=== PATIENT | male | born 1960 | race Caucasian/White ===

== ENCOUNTER 2018-06-12 07:12 | Emergency (ER) | payer BC, SELFPAY ==
[2018-06-12 07:16] VITALS: BP 162/80; PULSE 102; RESP 26; TEMP 36.4; O2SAT 95
[2018-06-12 07:34] VITALS: RESP 2; RESP 24; O2SAT 95
[2018-06-12] MEDS: Albuterol/Ipratropium 3 ML UPD VIAL UPD (07:34)
[2018-06-12 08:15] LABS: Abs Immature Grans 0.02 k/cumm (0.0-0.09); HCT 41.8 % (40.0-50.0); HGB 14.5 g/dL (13.5-17.5); Mean Corp. HGB Concentration 34.7 g/dL (32.0-36.0); Mean Corpuscular Hemoglobin 31.9 pg (27.0-33.0); Mean Corpuscular Volume 92.1 fL (80-95); Mean Platelet Volume 12.3 fL (8.0-11.0); RBC 4.54 m/cumm (4.50-6.00); RBC Distribution Width 12.8 % (11.8-14.1)
[2018-06-12 08:29] LABS: ALT 68 U/L (12-78); AST 109 U/L (15-37); Albumin 2.9 g/dL (3.4-5.0); Alkaline Phosphatase 175 U/L (46-116); Anion Gap 12.7 mmol/L (3-11); BUN 9 mg/dL (7-18); Bilirubin, Total 1.1 mg/dL (0.2-1.0); CO2 28.3 mmol/L (21.0-32.0); CREATININE 0.57 mg/dL (0.70-1.30); Calcium 8.4 mg/dL (8.5-10.1); Chloride 97 mmol/L (98-107); Glucose 129 mg/dL (70-100); Magnesium 1.1 mg/dL (1.8-2.4); NT-proBNP 143 pg/mL; Potassium 3.3 mmol/L (3.5-5.1); Sodium 138 mmol/L (136-145); Total Protein 7.8 g/dL (6.4-8.2)
[2018-06-12 08:33] LABS: Troponin I < 0.02 ng/mL (0.00-0.06)
[2018-06-12 08:38] LABS: Absolute Lymphocyte Count 3.25 k/cumm (1.2-3.4); Platelet Count 61 x1000/uL (130-400)
[2018-06-12 08:39] LABS: Absolute Eosinophil Count 0.06 k/cumm (0.0-0.7); Absolute Monocyte Count 0.66 k/cumm (0.11-0.7); Atypical Lymphocytes % 6; Diff Comment Manual Differential; Polychromasia Present
[2018-06-12 08:41] VITALS: RESP 24
[2018-06-12 08:54] VITALS: RESP 4
[2018-06-12] MEDS: Albuterol 2.5 MG/3 ML INH SOLN VIAL UPD ×2 (08:54→10:50)
[2018-06-12] MEDS: methylPREDNISolone SUCC 40 MG VIAL IVP (08:57)
[2018-06-12] MEDS: MAGNESIUM SULFATE 2 GM/50 ML BAG IVPB (09:31)
[2018-06-12] MEDS: Lactated Ringers 1,000 ML 1000 ML IV (09:31)
[2018-06-12 10:50] VITALS: PULSE 90; RESP 16; RESP 4; O2SAT 95
--- NOTE | 2018-06-12 10:56 | ED.GENADUL_ITS ---
Discharge Plan Disposition Patient Disposition: HOME Condition: Improving Discharge Details Chief Complaint: SOB Clinical Impression: Bronchitis Primary Care Provider: Srinivas Pink ED Provider: Dharmesh Blanco Home Meds and New Rx's Prescriptions: New prednisone [Deltasone] 20 MG tablet 40 mg PO DAILY 5 Days Qty: 10 RF: 0 albuterol sulfate 90 mcg/actuation HFA aerosol inhaler 2 - 4 puff IH Q4H PRN (Reason: shortness of breath or wheezing) Qty: 8 RF: 0 No Action lisinopril-hydrochlorothiazide 20-25 mg tablet 1 tab PO DAILY Qty: 90 RF: 4 Enbrel SureClick 50 MG/1 ML pen injector 50 mg SQ 1xwk RF: 0 Daily Multiple 1 EACH tablet 1 tab-cap PO DAILY RF: 0 metformin 500 MG tablet 500 mg PO BID Qty: 180 RF: 4 ipratropium bromide 15 ML spray,non-aerosol 2 spry NS TID PRNQty: 1 RF: 3 omeprazole 20 MG capsule,delayed release(DR/EC) 20 mg PO DAILY Qty: 90 RF: 4 Flovent HFA 44 mcg/actuation HFA aerosol inhaler 2 inh Inhalation BID Qty: 1 RF: 3 ibuprofen 800 mg tablet 800 mg PO TID PRN (Reason: pain) Qty: 90 RF: 3 Discharge Instructions Instructions: Acute Bronchitis (ED) Additional Instructions: 1. Drink plenty of fluids. 2. Continue all medications as prescribed. 3. Acetaminophen 1000mg every 4 hours (up to 5 time a day) and/or ibuprofen 600mg every 6 hours as needed for fever or pain. 4. Albuterol 2-4 puffs every 4 hours as needed for difficulty breathing/wheezing. 5. Prednisone 40 mg once a day for 4 days. 6. Zantac 300 mg at bedtime. Return to the Emergency Department (ED) if your condition worsens, does not improve as expected, or for ANY other concernsAlbuterol 2-4 puffs every 4 hours. Medical Decision Making 68-year-old gent with a history of alcohol abuse, asthma, hypertension, GERD, and tobacco use. Presents with 2 weeks of progressive dyspnea refractory to outpatient management. Has had a chronic recurrent cough productive of yellowish sputum and notes increased exertional limitation. On arrival, anxious but otherwise in no significant distress. Exam significant for diffuse expiratory wheezing with no focal deficit appreciated. EKG negative. Bedside ultrasound negative for evidence of focal consolidation or interstitial syndrome. Gradual clinical improvement after receiving multiple albuterol nebulizers and Solu-Medrol. Labs nondiagnostic including a negative troponin. Multiple re-evaluations with gradual improving symptoms. Discussed likely diagnosis of asthma exacerbation/bronchitis. Discharged home with a prescription for albuterol and prednisone. He will follow-up with his PCP. Pt evaluated immediately prior to discharge with improved symptoms, normal vital signs, and tolerating PO. The patient feels appropriate for discharge home. Discussed clinical/diagnostic findings. Discharged with a clear plan for outpatient follow up. Given usual and customary return instructions prior to discharge. Medical Records Medical records reviewed: Yes I reviewed the patient's medical records. Imaging Data Radiologic Study: Attestation: I personally reviewed and interpreted this imaging study as follows: Imaging: Ultrasound (Bedside thoracic ultrasound) My impression: Limited thoracic bedside Ultrasound. Findings include No pleural effusion, focal consolidation, or interstitial syndrome.. Images obtained, reviewed, and interpreted independently by myself. Images saved on ultrasound system for review. Lab Data Lab results reviewed: Yes I reviewed the patient's lab results. Lab results narrative: Lab Results 06/12/18 06/12/18 Range/Units 07:45 07:45 WBC 5.50 (4.4-10.8) k/cumm RBC 4.54 (4.50-6.00) m/cumm Hgb 14.5 (13.5-17.5) g/dL Hct 41.8 (40.0-50.0) % MCV 92.1 (80-95) fL MCH 31.9 (27.0-33.0) pg MCHC 34.7 (32.0-36.0) g/dL RDW 12.8 (11.8-14.1) % Plt Count 61 L (130-400) x1000/uL MPV 12.3 H (8.0-11.0) fL Immature Gran % 0.0 Neutrophils % 26.0 Band Neutrophils % 3.0 % Lymphocytes % 53.0 Atypical Lymphs % 6 Monocytes % 12.0 Eosinophils % 1.0 Basophils % 0.0 Absolute Neutrophils 1.60 (1.2-6.7) k/cumm Absolute Lymphocytes 3.25 (1.2-3.4) k/cumm Absolute Monocytes 0.66 (0.11-0.7) k/cumm Absolute Eosinophils 0.06 (0.0-0.7) k/cumm Absolute Basophils 0.00 (0.0-0.2) k/cumm Differential Comment Manual differential RBC Morphology See below Polychromasia Present Sodium 138 (136-145) mmol/L Potassium 3.3 L (3.5-5.1) mmol/L Chloride 97 L (98-107) mmol/L Carbon Dioxide 28.3 (21.0-32.0) mmol/L Anion Gap 12.7 H (3-11) mmol/L BUN 9 (7-18) mg/dL Creatinine 0.57 L (0.70-1.30) mg/dL Estimated GFR/1.73 m2 >= 60.00 (mL/min/1.73m2) Glucose 129 H (70-100) mg/dL Calcium 8.4 L (8.5-10.1) mg/dL Magnesium 1.1 L (1.8-2.4) mg/dL Total Bilirubin 1.1 H (0.2-1.0) mg/dL AST 109 H (15-37) U/L ALT 68 (12-78) U/L Alkaline Phosphatase 175 H (46-116) U/L Troponin I < 0.02 (0.00-0.06) ng/mL NT-Pro-B Natriuret Pep 143 ( - 299) pg/mL Total Protein 7.8 (6.4-8.2) g/dL Albumin 2.9 L (3.4-5.0) g/dL ECG Data Attestation: I personally reviewed and interpreted this ECG (s) as follows: Prior ECG tracings: not available for review Interpretation: NSR 95 bpm normal axis and intervals no acute ST changes. HPI 58-year-old gent with a history of asthma, depression, GERD, chronic tobacco use, alcohol use, and diabetes presents with 2 weeks of worsening dyspnea. He describes having intermittent issues with dyspnea and notes developing worsening dyspnea 2 weeks ago which has been progressive with associated productive cough. He has had significant exertional limitation and today was unable to walk without significant dyspnea. He denies fever/chills, chest pain, abdominal pain, or any significant lower extremity pain or swelling. Denies a history of CAD/congestive heart failure. He has been compliant with his medications including ipratropium twice a day. General Date/Time Provider Initiated Documentation: 06/12/18 07:32 . Related Data Home Medications Medication Instructions Recorded Confirmed Enbrel SureClick 50 mg SQ 1xwk 09/23/14 06/12/18 [id number] acid 1 tab-cap PO DAILY tab-cap 06/25/16 06/12/18 [Daily Multiple Tablet] ipratropium bromide 2 spry NS TID PRN #1 inh 06/23/17 06/12/18 metformin 500 mg PO BID #180 tab-cap 06/23/17 06/12/18 omeprazole 20 mg PO DAILY #90 tab-cap 06/23/17 06/12/18 fluticasone propionate 44 2 inh INHALATION BID #1 gm 01/15/18 06/12/18 mcg/actuation HFA aerosol inhaler lisinopril 20 1 tab PO DAILY #90 tab-cap 05/08/18 06/12/18 mg-hydrochlorothiazide 25 mg tablet ibuprofen 800 mg tablet 800 mg PO TID PRN #90 tab-cap 06/08/18 06/12/18 albuterol sulfate 2 - 4 puff IH Q4H PRN #8 gm 06/12/18 prednisone [Deltasone] 40 mg PO DAILY 5 Days #10 tab 06/12/18 Previous Rx's Medication Instructions Recorded metformin 500 mg PO BID #180 tab-cap 06/23/17 omeprazole 20 mg PO DAILY #90 tab-cap 06/23/17 fluticasone propionate 44 2 inh INHALATION BID #1 gm 01/15/18 mcg/actuation HFA aerosol inhaler lisinopril 20 1 tab PO DAILY #90 tab-cap 05/08/18 mg-hydrochlorothiazide 25 mg tablet ibuprofen 800 mg tablet 800 mg PO TID PRN #90 tab-cap 06/08/18 albuterol sulfate 2 - 4 puff IH Q4H PRN #8 gm 06/12/18 prednisone [Deltasone] 40 mg PO DAILY 5 Days #10 tab 06/12/18 Allergies Allergy/AdvReac Type Severity Reaction Status Date / Time No Known Allergies Allergy Unverified 04/10/18 10:57 General Stated Complaint: SOB AMI: 3 Review of Systems Review of Systems All systems are reviewed and are unremarkable except as noted in HPI and below: CONSTITUTIONAL: no fevers/chills, no weakness or change in appetite EYES: no change in vision HEENT: no throat pain or difficulty swallowing; no neck pain CARDIOVASCULAR: no chest pain, palpitations, leg swelling, or diaphoresis RESPIRATORY: dyspnea, wheezing; cough productive of yellowish sputum. GASTROINTESTINAL: no abdominal pain, melena, nausea/emesis GENITOURINARY: no dysuria, flank pain, MUSCULOSKELETAL: no pack pain, myalgias, arthralgias INTEGUMENTARY: no rash, no wounds NEUROLOGIC: no headache, focal weakness, difficulty with speech, numbness PSYCHIATRIC: no confusion, no anxiety HEME: no easy bruising or bleeding ALLERGIC: no urticaria PFSH Medical History Abnormal finding of blood chemistry, unspecified (Chronic) Alcohol abuse (Chronic) Asthma (Chronic) Depressive disorder (Chronic) Essential hypertension (Chronic 01/11/13) Gastroesophageal reflux disease (Chronic) Hepatomegaly (Chronic) History of tobacco use (Chronic) Hyperlipidemia (Chronic) Hypothyroidism (Chronic 04/30/12) Non-alcoholic fatty liver disease (Chronic) Psoriasis (Chronic) Rhinitis (Chronic) Tubular adenoma (Chronic) Type 2 diabetes mellitus without complication, without long-term current use of insulin (Chronic 05/31/16) Umbilical hernia (Chronic) Dislocation of acromioclavicular joint (Resolved) Viral hepatitis C (Resolved 01/30/07) HTN (hypertension) Psoriasis Sinus congestion Surgical History Colonoscopy - MAC (10/31/14) Tonsillectomy and adenoidectomy Family History Father Essential hypertension Aneurysm Myocardial infarction Neoplasm Stroke Social History Smoking/Tobacco Use Status: Current every day Tobacco Type: cigarettes Drug use: Never Do you feel safe at home: Yes Do you feel safe in your relationship?: Yes Exam Narrative Exam Narrative: Nursing note and vital signs have been reviewed and noted. GENERAL: alert, active, no acute distress, well -hydrated, well-nourished; mild tachypnea. HEENT: atraumatic/normocephalic, PERRLA, EOMI, conjunctiva clear, external ears/canals normal, nasal mucosa normal NECK: supple, full range of motion, no mass, normal lymphadenopathy, no thyromegaly CARDIOVASCULAR: RRR, no murmurs, nl pulses, no edema PULMONARY: Mild tachypnea with occasional deep inspiration, diffuse expiratory wheezing with a prolonged expiratory phase. No stridor, nl breath sounds or focal deficit. no chest wall tenderness ABDOMEN: soft, non-tender, non-distended, no mass, no organomegaly EXTREMITY: normal muscle tone, all joints with FROM, no deformity or tenderness SKIN: no exanthem appreciated NEURO: gross motor exam normal, normal stance and gait PSYCH: alert and oriented, Course Vital Signs Temperature 97.5 F L 06/12/18 07:16 Pulse 102 H 06/12/18 07:16 Respiratory Rate 26 H 06/12/18 07:16 Blood Pressure 162/80 H 06/12/18 07:16 Pulse Oximetry 95 06/12/18 07:16 Temperature 97.5 F L 06/12/18 07:16 Temperature Source Skin 06/12/18 07:16 Pulse 102 H 06/12/18 07:16 Respiratory Rate 24 06/12/18 08:41 Respiratory Effort Labored 06/12/18 09:06 Respiratory Pattern Tachypnea 06/12/18 08:41 Blood Pressure 162/80 H 06/12/18 07:16 Blood Pressure Position Sitting 06/12/18 07:16 Pulse Oximetry 95 06/12/18 07:34 Oxygen Delivery Method Room Air 06/12/18 07:34 Oxygen Flow Rate 0 06/12/18 07:34 Lab/Test Results Lab/Test Results: Laboratory Tests Range/Units 06/12/18 06/12/18 07:45 07:45 WBC (4.4-10.8) k/cumm 5.50 RBC (4.50-6.00) m/cumm 4.54 Hgb (13.5-17.5) g/dL 14.5 Hct (40.0-50.0) % 41.8 MCV (80-95) fL 92.1 MCH (27.0-33.0) pg 31.9 MCHC (32.0-36.0) g/dL 34.7 RDW (11.8-14.1) % 12.8 Plt Count (130-400) x1000/uL 61 L MPV (8.0-11.0) fL 12.3 H Immature Gran % 0.0 Neutrophils % 26.0 Band Neutrophils % % 3.0 Lymphocytes % 53.0 Atypical Lymphs % 6 Monocytes % 12.0 Eosinophils % 1.0 Basophils % 0.0 Absolute Neutrophils (1.2-6.7) k/cumm 1.60 Absolute Lymphocytes (1.2-3.4) k/cumm 3.25 Absolute Monocytes (0.11-0.7) k/cumm 0.66 Absolute Eosinophils (0.0-0.7) k/cumm 0.06 Absolute Basophils (0.0-0.2) k/cumm 0.00 Differential Comment Manual differential RBC Morphology See below Polychromasia Present Sodium (136-145) mmol/L 138 Potassium (3.5-5.1) mmol/L 3.3 L Chloride (98-107) mmol/L 97 L Carbon Dioxide (21.0-32.0) mmol/L 28.3 Anion Gap (3-11) mmol/L 12.7 H BUN (7-18) mg/dL 9 Creatinine (0.70-1.30) mg/dL 0.57 L Estimated GFR/1.73 m2 (mL/min/1.73m2) >= 60.00 Glucose (70-100) mg/dL 129 H Calcium (8.5-10.1) mg/dL 8.4 L Magnesium (1.8-2.4) mg/dL 1.1 L Total Bilirubin (0.2-1.0) mg/dL 1.1 H AST (15-37) U/L 109 H ALT (12-78) U/L 68 Alkaline Phosphatase (46-116) U/L 175 H Troponin I (0.00-0.06) ng/mL < 0.02 NT-Pro-B Natriuret Pep ( - 299) pg/mL 143 Total Protein (6.4-8.2) g/dL 7.8 Albumin (3.4-5.0) g/dL 2.9 L
== END 2018-06-12 11:25 | disposition home or self-care (01) ==
PROVIDERS: Emergency Medicine; Emergency Provider Emergency Medicine; PCP Family Medicine
DX: J20.9 Acute bronchitis, unspecified (principal); I10 Essential (primary) hypertension; J45.909 Unspecified asthma, uncomplicated; F17.210 Nicotine dependence, cigarettes, uncomplicated
CPT/HCPCS: 36415; 80053; 93005; 94640; 96361; 96365; 96366; 96375; 99285; 83735; 83880; 84484; 85025; 93010; J7613; J7620

== ENCOUNTER 2019-03-12 11:07 | Outpatient (CLI) | payer BC, SELFPAY ==
--- NOTE | 2019-03-12 11:21 | DI.RAD_ITS ---
EXAM: XR CHEST 2V PA LATERAL XR CHEST 2V PA LATERAL CLINICAL HISTORY: Dyspnea with orthopnea R06.00 Dyspnea with orthopnea R06.00 TECHNIQUE: 2D digital imaging was performed. COMPARISON: No exams were available for comparison FINDINGS: The heart is not enlarged. The lungs are clear and well expanded. No pleural effusion seen. Mediastin al contours appear intact. IMPRESSION: Normal chest
[2019-03-12 12:03] LABS: HCT 39.5 % (40.0-50.0); HGB 13.2 g/dL (13.5-17.5); Mean Corp. HGB Concentration 33.4 g/dL (32.0-36.0); Mean Corpuscular Hemoglobin 32.9 pg (27.0-33.0); Mean Corpuscular Volume 98.5 fL (80-95); RBC 4.01 m/cumm (4.50-6.00); RBC Distribution Width 17.9 % (11.8-14.1); White Blood Cell Count 10.67 k/cumm (4.4-10.8)
[2019-03-12 12:21] LABS: ALT 38 U/L (16-63); AST 136 U/L (15-37); Albumin 2.3 g/dL (3.4-5.0); Alkaline Phosphatase 219 U/L (46-116); Anion Gap 10.4 mmol/L (3-11); BUN 35 mg/dL (7-18); Bilirubin, Total 5.1 mg/dL (0.2-1.0); CO2 22.6 mmol/L (21.0-32.0); CREATININE 1.31 mg/dL (0.70-1.30); Calcium 8.8 mg/dL (8.5-10.1); Chloride 103 mmol/L (98-107); Estimated GFR 55.81 (mL/min/1.73m2); Glucose 131 mg/dL (74-106); Potassium 4.9 mmol/L (3.5-5.1); Sodium 136 mmol/L (136-145); Total Protein 8.3 g/dL (6.4-8.2)
[2019-03-12 12:43] LABS: Platelet Count 12 x1000/uL (130-400)
== END 2019-03-12 11:27 ==
PROVIDERS: PCP Family Medicine; Visit Provider Family Medicine
DX: R06.00 Dyspnea, unspecified (principal)
CPT/HCPCS: 36415; 80053; 85027; 71046

== ENCOUNTER 2019-03-12 13:07 | Emergency (ER) | payer BC, SELFPAY ==
[2019-03-12] VITALS (35 sets, daily range): BP systolic 53–130; BP diastolic 38–89; PULSE 85–125; RESP 14–26; TEMP 36.6–36.7; O2SAT 81–98
--- NOTE | 2019-03-12 13:26 | W.ED.GENAD ---
Discharge Plan Disposition Patient Disposition: [facility] Condition: Critical Discharge Details Chief Complaint: SOB Clinical Impression: Cirrhosis, Thrombocytopenia, Hypotension, Multifocal pneumonia Primary Care Provider: Srinivas Pink ED Provider: Donavan Keller Home Meds and New Rx's Prescriptions: No Action lisinopril-hydrochlorothiazide 20-25 mg tablet 1 tab PO DAILY Qty: 90 RF: 4 potassium chloride 10 mEq capsule, extended release 10 meq PO DAILY Qty: 90 RF: 4 venlafaxine 75 mg capsule,extended release 24hr 75 mg PO DAILY Qty: 30 RF: 3 Enbrel SureClick 50 MG/1 ML pen injector 50 mg SQ 1xwk RF: 0 ibuprofen 800 mg tablet 800 mg PO TID PRN (Reason: pain) Qty: 90 RF: 3 metformin 500 mg tablet 500 mg PO BID Qty: 180 RF: 4 omeprazole 20 mg capsule,delayed release(DR/EC) 20 mg PO DAILY Qty: 90 RF: 4 Flovent HFA 44 mcg/actuation HFA aerosol inhaler 2 inh Inhalation BID Qty: 1 RF: 3 albuterol sulfate 90 mcg/actuation HFA aerosol inhaler 2 - 4 puff IH Q4H MDD 12 puffs PRN (Reason: shortness of breath or wheezing) Qty: 8 RF: 4 magnesium oxide 400 mg magnesium Capsule 400 mg PO DAILY RF: 0 Medical Decision Making 59 yo male with hx of former alcohol abuse, quit over the summer per patient, gerd, asthma, htn, depression, t2dm, who comes in with several months of increasing abdominal distention and shortness of breath. Denies chest pain or pressure or fevers, denies taking tylenol or other drug use. Saw his pcp today who ordered lab work and it showed plts of 12 and elevated bilirubin and lfts and was referred here, also had an xray done of his chest that was unremarkable. He has a distended abdomen without tenderness that I suspect is from ascites. I suspect his symptoms are due to likely cirrhosis from the alcohol use he has had and the thrombocytopenia is related to this given he appears well on exam in no distress. Will obtain ct to evaluate for this. Doubt ttp as he has no renal pathology on labs from earlier and no sign wirer abnormalities or fever. Doubt hus given no renal failure. Doubt sbp given lack of abdominal pain or fevers. pt's ct per Dr. Peguero shows bilateral multifactorial pna and also ?mass in ivc and requesting u/s to further evaluate. Also has mass on the liver. I ordered blood cultures and coverage for CAP after performing diagnostic paracentesis, he gave verbal consent after risks of bleeding and infection were discussed and understood risks and benefits. inconclusive study per Dr. Peguero on u/s. Pt remains stable at this time. Given his multiple pathologies, the cirrhosis, thrombocytopenia and ivc thrombus with pneumonia will see if [facility] [place] [facility] [place], will [facility], will discuss with oncology at [facility] about anticoagulation. Pt remains stable at this time Spoke with Dr. Vela at [facility] [place] and he recommended transfusing platelets until they are greater than 20K and then starting lovenox 0.5mg BID. Spoke with Dr. Hayward who doesn't feel patient is appropriate for admission here. Will consult with [facility] Patient became persistently hypotensive with map's in the 50's not responsive to fluid. Given this I started pressors and hisMAPs increased to the 70's on the pressors. HE is maintaining his airway. Will speak with [facility] icu about transfer Spoke with ICU and they accept in transfer, will go to the ICU they asked that vitamin K be given. HE remains with map of 70 on pressors. The platelets take 4+ hours to come from [place] so will need to be given when he arrives at [facility]. ACcepting provider is Dr. Briseno Differential Diagnosis Differential Diagnosis: cirrhosis, ascites Medical Records Medical records reviewed: Yes I reviewed the patient's medical records. Imaging Data Radiologic Study: Attestation: I personally reviewed and interpreted this imaging study as follows: Imaging: CT Scan Radiologist's impression: MPRESSION: 1. Hepatic cirrhosis and abdominal ascites with associated esophageal varices and upper abdominal varices. 2. Findings suggesting left hepatic lobe neoplasm, possibility of tumor thrombus to hepatic veins, IVC and right atrium is raised. Correlation with echocardiography and abdominal ultrasound recommended. 3. Bilateral nonobstructing renal calculi. 4. Nonspecific thick wall appearance of small bowel and to lesser degree the colon. 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 Echocardiography suggested for further evaluation to evaluate the possibility of right atrial thrombus. Lab Data Lab results reviewed: Yes I reviewed the patient's lab results. ECG Data Attestation: I personally reviewed and interpreted this ECG (s) as follows: Prior ECG tracings: not available for review Interpretation: sinus tachycardia rate of 117, pr 140, no acute st t wave ischemic findings HPI General Mode of arrival: ambulatory. Date/Time Provider Initiated Documentation: 03/12/19 13:13. Limitations to Documentation: no limitations. Information obtained by: patient. History of Present Illness 59 year old M presents to the emergency department with the chief complaint of abdominal distention, described as moderate, Patient started experiencing this month(s) (3) and it has been constant. No relieving factors improve symptom(s), No exacerbating factors reported . Patient did receive the following treatments prior to arrival, none Related Data Home Medications Medication Instructions Recorded Confirmed Enbrel SureClick 50 mg SQ 1xwk 09/23/14 03/12/19 lisinopril 20 1 tab PO DAILY #90 tab-cap 05/08/18 03/12/19 mg-hydrochlorothiazide 25 mg tablet ibuprofen 800 mg tablet 800 mg PO TID PRN #90 tab-cap 06/08/18 03/12/19 metformin 500 mg tablet 500 mg PO BID #180 tab-cap 07/06/18 03/12/19 omeprazole 20 mg capsule,delayed 20 mg PO DAILY #90 tab-cap 07/06/18 03/12/19 release fluticasone propionate 44 2 inh INHALATION BID #1 gm 08/03/18 03/12/19 mcg/actuation HFA aerosol inhaler potassium chloride 10 mEq 10 meq PO DAILY #90 cap 09/11/18 03/12/19 capsule,extended release albuterol sulfate 90 mcg/actuation 2 - 4 puff IH Q4H PRN #8 gm MDD 12 09/14/18 03/12/19 aerosol inhaler puffs magnesium oxide 400 mg PO DAILY 03/12/19 03/12/19 venlafaxine 75 mg capsule,extended 75 mg PO DAILY #30 cap 03/12/19 03/12/19 release 24 hr Previous Rx's Medication Instructions Recorded lisinopril 20 1 tab PO DAILY #90 tab-cap 05/08/18 mg-hydrochlorothiazide 25 mg tablet ibuprofen 800 mg tablet 800 mg PO TID PRN #90 tab-cap 06/08/18 metformin 500 mg tablet 500 mg PO BID #180 tab-cap 07/06/18 omeprazole 20 mg capsule,delayed 20 mg PO DAILY #90 tab-cap 07/06/18 release fluticasone propionate 44 2 inh INHALATION BID #1 gm 08/03/18 mcg/actuation HFA aerosol inhaler potassium chloride 10 mEq 10 meq PO DAILY #90 cap 09/11/18 capsule,extended release albuterol sulfate 90 mcg/actuation 2 - 4 puff IH Q4H PRN #8 gm MDD 12 09/14/18 aerosol inhaler puffs venlafaxine 75 mg capsule,extended 75 mg PO DAILY #30 cap 03/12/19 release 24 hr Allergies Allergy/AdvReac Type Severity Reaction Status Date / Time No Known Allergies Allergy Unverified 03/12/19 13:19 General Stated Complaint: SOB AMI: 3 Review of Systems All systems reviewed & are unremarkable except as noted in HPI and below Constitutional Constitutional: Denies chills, Denies fever(s) and Denies weakness Cardiovascular Cardiovascular: Denies chest pain Respiratory Respiratory: Denies cough Gastrointestinal Gastrointestinal: Denies abdominal pain, Denies nausea and Denies vomiting Musculoskeletal Musculoskeletal: Denies joint swelling Neurologic Neurologic: Denies weakness [facility] Medical History (Updated 09/11/18 @ 16:32 by Srinivas Pink MD) Abnormal finding of blood chemistry, unspecified (Chronic) Increased LFT's elevated ferritin 01/08; 2 heterozygous hemochromatosis mutations Alcohol abuse (Chronic) 3-6 drinks per day. DUI SOBER SINCE 07/09 Asthma (Chronic) Depressive disorder (Chronic) and anger Dislocation of acromioclavicular joint (Resolved) Lt AC seperation Essential hypertension (Chronic 01/11/13) Gastroesophageal reflux disease (Chronic) Heartburn/GERD Hepatomegaly (Chronic) Increased LFTs History of tobacco use (Chronic) Quit 07/19 HTN (hypertension) Hyperlipidemia (Chronic) Hypothyroidism (Chronic 04/30/12) Non-alcoholic fatty liver disease (Chronic) Psoriasis chronic Psoriasis (Chronic) Rhinitis (Chronic) Sinus congestion Tubular adenoma (Chronic) 10/31/14; DR. BALLARD Type 2 diabetes mellitus without complication, without long-term current use of insulin (Chronic 05/31/16) Umbilical hernia (Chronic) Viral hepatitis C (Resolved 01/30/07) Surgical History (Updated 09/08/18 @ 12:45 by Liang Aj) Colonoscopy - [facility] (10/31/14) Dr. Sri Ballard Tonsillectomy and adenoidectomy Family History (Updated 09/14/18 @ 10:17 by Victoriano Sterans) Father , 76 Essential hypertension Aneurysm Myocardial infarction Neoplasm PROSTATE Stroke Mother No problems noted. Sister No problems noted. Brother No problems noted. Maternal Grandfather No problems noted. Paternal Grandfather , 85 Prostate cancer Maternal Grandmother , 96 No problems noted. Paternal Grandmother , 62 No problems noted. Daughter No problems noted. Social History (Updated 09/14/18 @ 10:15 by Victoriano Stearns) Smoking/Tobacco Use Status: Former Tobacco Use Quit Date: 07/01/18 Alcohol Intake: former Drug use: Current Sobriety Substance use type: marijuana Current gender identity: decline to answer What is your relationship status?: refused to answer How often do you talk on the phone with friends or family?: decline to answer How often do you get together with friends or relatives?: decline to answer How often do you attend christian or sikhism services?: decline to answer Do you belong to any clubs or organized social groups?: decline to answer Panel score (0-1 are the most socially isolated patients): 0 What type of physical activity do you participate in: decline to answer Duration: decline to answer Frequency: decline to answer Beatriz/Jewish: No preference Special beatriz needs: No Do you feel safe at home: Yes Do you feel safe in your relationship?: Yes Exam Const General: no acute distress Orientation: alert HENMT Head: normal to inspection Ears: external ears normal General nose exam: external nose normal Mouth: moist mucous membranes Eyes General: appearance normal, both eyes and all related structures Neck Neck: normal visual inspection Resp Effort & Inspection: normal respiratory effort and able to speak in complete sentences Cardio Rate: regular rate GI Inspection: distended Palpation: nontender Skin General skin exam: no rashes or lesions noted Neuro General: alert and oriented x3 Extrem General: normal to inspection Psych Mental Status: mental status grossly normal Course Vital Signs Vital signs: Vital Signs Temperature 36.6 C 03/12/19 13:14 Pulse 120 H 03/12/19 13:14 Blood Pressure 108/60 03/12/19 13:14 Pulse Oximetry 98 03/12/19 13:14 Temperature 36.6 C 03/12/19 13:14 Temperature Source Skin 03/12/19 13:14 Pulse 120 H 03/12/19 13:14 Blood Pressure 108/60 03/12/19 13:14 Blood Pressure Position Supine 03/12/19 13:14 Pulse Oximetry 98 03/12/19 13:14 Oxygen Delivery Method Room Air 03/12/19 13:14 Oxygen Flow Rate 0 03/12/19 13:14 Critical Care Time Critical Care Time Critical Care Time: Yes Total Critical Care Time: 60 (minutes) Attestation: time spent on lab review and frequent reassessments in patient with hypotension requiring pressors and potential to deteriorate at any time
[2019-03-12 13:41] LABS: HCO3 (Venous) 24 mmol/L (22-28); O2 Sat (Venous) 30 % (70-80); TCO2 (Venous) 22 mmol/L (22-29); pCO2 (Venous) 43 mm/Hg (34-47); pH (Venous) 7.35 (7.35-7.45); pO2 (Venous) 22 mm/Hg (28-44)
[2019-03-12 13:51] LABS: ETHANOL BLOOD < 3.0 mg/dL (<3)
[2019-03-12 13:58] LABS: Acetaminophen < 2 ug/mL (10-30)
--- NOTE | 2019-03-12 14:00 | DI.CT_ITS ---
EXAM: CT ABDOMEN AND PELVIS W CLINICAL HISTORY: ABDOMINAL DISTENTION, ?ASCITES VS CIRRHOSIS TECHNIQUE: CT examination of the abdomen and pelvis was performed with a bolus infusion of 100 cc of Omnipaque 350. COMPARISON: No exams were available for comparison FINDINGS: Images obtained through the lung bases show multiple focal areas of apparent pulmonary consolidation in both lungs consistent with multifocal pneumonia. There is marked abdominal ascites. There are esophageal varices. Spleen is grossly unremarkable. M arked inhomogeneity of left hepatic lobe and portions of the right hepatic lobe, question hepatic chrissy ous thrombus extending to IVC and into the right atrium, suggestive of tumor thrombus. The possibili ty that this represents flow artifact is not excluded. Pancreas is unremarkable. No gross abdominal or pelvic adenopathy. Nonobstructing renal calculi see n bilaterally. Adrenals are unremarkable. Abdominal aorta is of normal diameter. No occlusion of t he major branches of the abdominal aorta is seen. No significant abdominal wall hernia seen. Findin gs suggesting moderate bowel edema, a nonspecific finding. IMPRESSION: 1. Hepatic cirrhosis and abdominal ascites with associated esophageal varices and upper abdominal vivek ices. 2. Findings suggesting left hepatic lobe neoplasm, possibility of tumor thrombus to hepatic veins, IV C and right atrium is raised. Correlation with echocardiography and abdominal ultrasound recommended . 3. Bilateral nonobstructing renal calculi. 4. Nonspecific thick wall appearance of small bowel and to lesser degree the colon. This may be rela shahram to cirrhosis/abdominal ascites.
[2019-03-12] MEDS: Omnipaque 350 MG/ML 100 ML BTL IJ (14:13)
--- NOTE | 2019-03-12 14:48 | DI.US_ITS ---
EXAM: US ABDOMEN CLINICAL HISTORY: ?MASS IN IVC VS RIGHT ATRIUM TECHNIQUE: Ultrasound performed using standard protocol. Ultrasound examination was performed to e valuate a questionable flow artifact versus thrombus or tumor thrombus in the inferior vena cava at t he level of the liver. COMPARISON: CT obtained today showed a question of IVC and right atrial tumor thrombus. FINDINGS: Right atrium not visualized on this ultrasound examination. IVC poorly seen but there is some questi on of tumor thrombus in IVC. The ultrasound also confirms a very heterogeneous irregular left hepati c lobe mass-like lesion in a markedly cirrhotic liver in a patient with severe ascites. IMPRESSION: Examination was technically limited but, as on today's abdominal CT, is consistent with severe hepati c cirrhosis, probable left hepatic lobe neoplastic disease, and possible IVC tumor thrombus. Echocar diography suggested for further evaluation to evaluate the possibility of right atrial thrombus.
[2019-03-12 15:15] LABS: Clarity CLOUDY; Source PERITONEAL
[2019-03-12 15:16] LABS: Nucleated Cells 567 /MM3 (0-0)
[2019-03-12 15:34] LABS: Mononuclear Cells 92 % (0-0); Polynuclear Cells 8 % (0-0)
[2019-03-12] MEDS: cefTRIAXone 2 GM/50 ML BAG IVPB (16:00)
[2019-03-12] MEDS: Normal Saline 1,000 ML 1000 ML IV (16:10)
[2019-03-12] MEDS: AZITHROMYCIN 500 MG in Normal Saline 250 ML 250 MG IVPB (16:32)
[2019-03-12] MEDS: Ondansetron 4 MG/2 ML VIAL (16:40)
[2019-03-12 16:49] LABS: Prothrombin Time > 83.4 sec (9.3-11.0)
[2019-03-12 16:53] LABS: INR > 8.8 (0.9-1.1); PTT Activated 34.5 sec (21.0-31.4)
[2019-03-12 17:00] LABS: Bilirubin, Direct 3.34 mg/dL (0.00-0.20); Lipase 324 U/L (73-393)
--- NOTE | 2019-03-12 18:50 | NUR.NOTE ---
IV site in right upper arm was assessed due to being given norepi. No pain or infiltation noted at the site at 1852
[2019-03-12] MEDS: Phytonadione 5 MG TABLET 10 MG PO (18:55)
--- NOTE | 2019-03-16 09:19 | NUR.NOTE ---
Patient transferred to [facility], faxed peritoneal fluid report to [phone].Nursing Note:
[2019-03-16 14:35] LABS: Hepatitis C Ab w Rflx HCV PCR Reactive (Negative)
[2019-03-16 15:45] LABS: HCV RNA Detection Quantitative 0 IU/mL (Undetected)
== END 2019-03-12 18:30 | disposition short-term general hospital (02) ==
PROVIDERS: Emergency Provider Emergency Medicine; PCP Family Medicine
DX: R14.0 Abdominal distension (gaseous) (principal); R93.2 Abnormal findings on diagnostic imaging of liver and biliary tract; K70.31 Alcoholic cirrhosis of liver with ascites; I95.9 Hypotension, unspecified; D69.6 Thrombocytopenia, unspecified; J18.9 Pneumonia, unspecified organism; I10 Essential (primary) hypertension; E11.9 Type 2 diabetes mellitus without complications; Z79.84 Long term (current) use of oral hypoglycemic drugs
CPT/HCPCS: 36415; 82805; 83690; 86803; 86850; 86900; 86901; 87040; 96361; 96365; 96367; 96375; 99291; 74177; 76700; 80320; 80329; 82248; 85610; 85730; 87070; 87205; 87522; 89051; J0456; J2405; J3490